=== PATIENT | female | born 1960 | race Caucasian/White ===

== ENCOUNTER → 2019-04-27 | Outpatient (CLI) | payer BC ==
[~2019-04-27] MED LIST: Colace100 MG PO; FERROUS SULFAT140 MG; IRON150C
[2019-05-01 14:07] LABS: HPV 16 Negative (Negative); HPV 18 Negative (Negative); HPV OTHER HR TYPES Negative (Negative)
== END | disposition home or self-care (01) ==
LOC: LAB 14:28 → LAB SHORT 14:28
PROVIDERS: Nurse Practitioner Women's Health
DX: Z12.4 Encounter for screening for malignant neoplasm of cervix (principal); Z91.89 Other specified personal risk factors, not elsewhere classified
CPT/HCPCS: 87624; G0123

== ENCOUNTER → 2020-09-23 | Outpatient (CLI) | payer BC | END | disposition home or self-care (01) | LOC: LAB SHORT 13:56 → PLD 13:56 | DX: L72.0 Epidermal cyst (principal) | CPT/HCPCS: 88304 ==

== ENCOUNTER 2022-03-06 07:29 | Day surgery (SDC) | payer BC ==
[~2022-03-06] VITALS: Ht 157.5 cm; Wt 73.0 kg
--- NOTE | 2022-03-06 09:16 | NUR ---
03/06/22 0916 Deion Fraga 0.1MG OF EPI (1MG/1ML) ADDED TO 20MLS OF ROPIVACAINE 0.2% TO CREATE A LOCAL SOLUTION OF ROPIVACAINE 0.2% WITH EPI 1:200,000. LOCAL POURED ONTO STERILE FIELD FOR USE DURING CASE.
--- NOTE | 2022-03-06 10:44 | NUR ---
03/06/22 1044 Solomon Ramachandran GIVEN FOR WORSENING FOOT PAIN AT 08/07WORST
== END 2022-03-06 11:00 | disposition home or self-care (01) ==
LOC: ORSCSDS 07:29
PROVIDERS: Podiatrist Foot & Ankle Surgery
PROC: 0SGN04Z Fusion of Left Metatarsal-Phalangeal Joint with Internal Fixation Device, Open Approach (ICD-10-PCS; principal; 2022-03-06 08:45)
DX: M20.22 Hallux rigidus, left foot (principal)
CPT/HCPCS: A9270; C1713; J0171; J0690; J1100; J1885; J2250; J2405; J2704; J2795; J3010; J7120

== ENCOUNTER 2022-07-07 05:52 | Day surgery (SDC) | payer BC ==
[~2022-07-07] VITALS: Ht 157.5 cm; Wt 74.4 kg
--- NOTE | 2022-07-07 10:23 | NUR ---
ARRIVAL TO UNIT ASSESSMENT CHARTED. PLEASANT, BUT TIRED. REPORTS WANTING TO REST. HOB KEPT AT 30 DEGREES FOR BP, WILL SLOWLY ELEVATE WHEN READY TO EAT/DRINK.
--- NOTE | 2022-07-07 17:26 | NUR ---
SHIFT SUMMARY PT HAS DONE WELL POST OP. EATING, DRINKING, VOIDING. PAIN WELL CONTROLLED. WORKED w/ THERAPY. DID BECOME SLIGHTLY NAUSEATED AFTER TYLENOL; NO EMESIS & QUICKLY RESOLVED.
--- NOTE | 2022-07-08 04:38 | NUR ---
SHIFT SUMMARY NO ACUTE CHANGES. RIGHT HIP DRESSING REMAINS CDI WITH POLAR PACK IN PLACE. TORADOL/TYLENOL FOR PAIN MANAGEMENT. UP WITH 1 ASSIST USING FWW + GB TO THE BATHROOM. PT WITH SOFT BLOOD PRESSURES T/O SHIFT, BUT ARE TRENDING UP AND PT REMAINS ASYMPTOMATIC. USES CALL LIGHT APPROPRIATELY.
[2022-07-08 05:11] LABS: Bun/Creatinine Ratio 28.8 (12.0-20.0); Calcium, Blood 8.7 mg/dL (8.5-10.1); Creatinine, Blood 0.7 mg/dL (0.40-1.00); Potassium, Blood 4.3 mmol/L (3.5-5.5)
[2022-07-08 05:23] LABS: BASOPHILS ABSOLUTE AUTO 0.02 K/mm3 (0.00-0.23); BASOPHILS PERCENT AUTO 0 % (0-2); EOSINOPHILS ABSOLUTE AUTO 0.01 K/mm3 (0.00-0.68); EOSINOPHILS PERCENT AUTO 0 % (0-6); Hematocrit 26.7 % (33.0-51.0); Hemoglobin 9.4 g/dL (11.5-16.0); IMMATURE GRAN ABSOLUTE AUTO 0.04 K/mm3 (0.00-0.10); IMMATURE GRAN PERCENT AUTO 0 % (0-1); LYMPHOCYTES ABSOLUTE AUTO 1.07 K/mm3 (0.84-5.20); LYMPHOCYTES PERCENT AUTO 11 % (21-46); MONOCYTES ABSOLUTE AUTO 0.79 K/mm3 (0.16-1.47); MONOCYTES PERCENT AUTO 8 % (4-13); Mean Corpuscular HGB 33.1 pg (26.0-34.0); Mean Corpuscular HGB Conc 35.2 g/dL (31.5-36.5); Mean Corpuscular Volume 94 fL (80-100); Mean Platelet Volume 11.3 fL (9.1-12.4); NEUTROPHILS ABSOLUTE AUTO 7.86 K/mm3 (1.96-9.15); NEUTROPHILS PERCENT AUTO 80 % (41-73); Platelet Count 163 K/mm3 (150-400); RDW Coefficient Variation 11.4 % (11.7-14.2); RDW Standard Deviation 38.6 fL (35.1-46.3); Red Blood Cell Count 2.84 M/mm3 (3.80-5.20); White Blood Cell Count 9.79 K/mm3 (4.00-11.30)
[2022-07-08] MEDS ORDERED: ASPI81CH PO (09:41)
[2022-07-08] MEDS ORDERED: Percocet 5-3251 EACH PO (09:41)
--- NOTE | 2022-07-08 10:45 | NUR ---
DISCHARGE SUMMARY PT POD #1 FOR R TOTAL HIP. AQUACEL DRESSING IN PLACE, CDI. NO C/O PAIN THIS SHIFT AND WORKED WELL WITH PHYSICAL THERAPY. NO C/O DIZZINESS/FAINTING/LOW BP. DC'D HOME WITH .
== END 2022-07-08 10:48 | disposition home or self-care (01) ==
LOC: ORSCMMR 05:52 → SURS 10:23 → ORSCMMR 11:00 → ORD 11:00 → ORSCMMR 07-08 10:48
PROVIDERS: Orthopaedic Surgery
PROC: 0SR90JZ Replacement of Right Hip Joint with Synthetic Substitute, Open Approach (ICD-10-PCS; principal; 2022-07-08)
DX: M16.11 Unilateral primary osteoarthritis, right hip (principal); F32.A Depression, unspecified
CPT/HCPCS: 36415; 72170; 80048; 85025; 97110; 97116; 97162; A9270; C1776; J0171; J0690; J0735; J1100; J1885; J2250; J2370; J2405; J2704; J2795; J3010; J7120